=== PATIENT | female | born 1970 | race Caucasian/White ===

== ENCOUNTER 2017-05-16 01:47 | Emergency (ER) | payer SELFPAY ==
[~2017-05-16] VITALS: Ht 172.7 cm; Wt 71.8 kg
[2017-05-16 02:37] VITALS: BP 128/72
== END 2017-05-16 02:55 | disposition home or self-care (01) ==
LOC: EMS 01:48
DX: L03.116 Cellulitis of left lower limb (principal)
CPT/HCPCS: 99283